=== PATIENT | female | born 1995 | race Caucasian/White ===

== ENCOUNTER 2016-05-24 18:54 | Emergency (ER) | payer BC ==
[~2016-05-24] VITALS: Ht 160 cm; Wt 48.0 kg
[2016-05-24 19:03] VITALS: Ht 160 cm; Wt 48.0 kg
[2016-05-24] MEDS ORDERED: IBUPROFEN 400 MG TAB PO STA (21:39)
[2016-05-24] MEDS ORDERED: IBUP400T22 PO (21:45)
[2016-05-24] MEDS ORDERED: OSLT75C PO (21:45)
[2016-05-24 21:54] LABS: URINE BLOOD (Dip) POC Negative (NEGATIVE)
[2016-05-24 22:30] VITALS: BP 110/69; PULSE 130; RESP 20; TEMP 102.8
--- NOTE | 2016-05-24 22:46 | ERD ---
ER Documentation Chief Complaint Date/Time DATE: 05/24/16 TIME: 22:46 Chief Complaint fevr x 1 day HPI 21-year-old female previously healthy currently breast-feeding presenting with generalized body aches associated with fever, cough, sore throat. She has been taking Tylenol at home with some relief of her symptoms. Her symptoms started yesterday with a T-max of 102 Fahrenheit. She denies any dysuria or hematuria. She denies any nausea, vomiting, abdominal pain, severe headache, vision disturbance, neck pain or stiffness or diarrhea. ROS All systems reviewed and are negative except as per history of present illness. Medications Home Meds Active Scripts Oseltamivir Phosphate* (Tamiflu*) 75 Mg Capsule, 75 MG PO DAILY, #5 CAP Prov:CRISTOFER WHEATLEY MD 05/24/16 Ibuprofen* (Motrin*) 400 Mg Tab, 400 MG PO Q6H Y for pain or fever, #30 TAB Prov:CRISTOFER WHEATLEY MD 05/24/16 Allergies Allergies: Coded Allergies: No Known Allergy (Unverified , 05/24/16) PMhx/Soc History of Surgery: Yes () Anesthesia Reaction: No Hx Neurological Disorder: No Hx Respiratory Disorders: No Hx Cardiac Disorders: No Hx Psychiatric Problems: No Hx Miscellaneous Medical Probl: No Hx Alcohol Use: No Hx Substance Use: No Hx Tobacco Use: No Smoking Status: Unknown if ever smoked FmHx Family History: No diabetes Physical Exam Vitals Vital Signs Date Time Temp Pulse Resp B/P Pulse Ox O2 Delivery O2 Flow Rate FiO2 05/24/16 22:30 102.8 130 20 110/69 100 Room Air 05/24/16 19:03 100.3 126 20 110/69 99 Physical Exam Const: Well-appearing, well-nourished, nontoxic, no acute distress Head: Atraumatic Eyes: Normal Conjunctiva ENT: Normal External Ears, Nose and Mouth. Neck: Full range of motion. No meningismus. No cervical lymphadenopathy Resp: Clear to auscultation bilaterally Cardio: Regular rate and rhythm, no murmurs Abd: Soft, non tender, non distended. Normal bowel sounds Skin: No petechiae or rashes Back: No midline or flank tenderness Ext: No cyanosis, or edema Neur: Awake and alert and oriented Psych: Normal Mood and Affect Results 24 hrs Laboratory Tests Test 05/24/16 21:55 Bedside Urine Blood Negative Bedside Urine Glucose (UA) Negative Bedside Urine Ketones (LAB) Trace Bedside Urine Leukocyte Esterase (L 1+ Bedside Urine Nitrite (LAB) Negative Bedside Urine Protein (LAB) Negative Bedside Urine pH (LAB) 5.5 Current Medications Medications (Trade) Dose Ordered Sig/Nicole Route PRN Reason Start Time Stop Time Status Last Admin Dose Admin Ibuprofen (Motrin) 400 mg ONCE STAT PO 05/24/16 21:39 05/24/16 21:41 DC 05/24/16 21:59 Procedures/MDM Data and Course: I reviewed the nursing notes. Labs and imaging was felt not to be warranted. This is an otherwise healthy, well appearing patient presenting with uncomplicated flulike symptoms, likely viral in etiology. Patient is non-toxic and well hydrated. She has a low-grade fever and tachycardia, however I do not suspect severe sepsis. I have low suspicion for pneumonia or significant bacterial disease. Patient will be treated with outpatient Tamiflu for suspected flu; no indications for antibiotics at this time. I encouraged p.o. hydration at home and symptom control with ibuprofen and/or Tylenol. Discharge instructions have included return precautions and close follow up with PMD. Departure Diagnosis: Primary Impression: Flu-like symptoms Condition: Stable Patient Instructions: Influenza (Adult) CRISTOFER WHEATLEY MD May 24, 2016 22:46
== END 2016-05-24 22:40 | disposition home or self-care (01) ==
LOC: FTE 18:54
DX: R50.9 Fever, unspecified (principal); R05 Cough; J02.9 Acute pharyngitis, unspecified; R00.0 Tachycardia, unspecified
CPT/HCPCS: 81003; 99283